=== PATIENT | male | born 1985 | race Caucasian/White ===

== ENCOUNTER 2021-02-09 01:01 | Observation (INO) | payer OTHER ==
[2021-02-09 01:08] VITALS: RESP 18; TEMP 98.3
[2021-02-09] MEDS ORDERED: MAG HYDROX/AL HYDROX/SIMETH 30 ML, HYOSCYAMINE ELIXIR 10 ML, LIDOCAINE VISCOUS 2% 10 ML PO STA ×3 (02:08)
[2021-02-09 02:31] VITALS: BP 123/82; PULSE 63
--- NOTE | 2021-02-09 02:44 | ED ---
Chest Pain HPI - General Chief Complaint: Chest Pain Stated Complaint: Chest Pain Time Seen by Provider: 02/09/21 01:12 Source: patient, EMS Mode of arrival: EMS - History of Present Illness MD Complaint: chest pain Onset/Timin -: hour(s) Onset: during rest Pain Location: left chest Pain Radiation: LUE Severity: severe Quality: aching Consistency: now resolved Improves With: nitroglycerin Worsens With: nothing Treatments Prior to Arrival: aspirin, nitroglycerin - Related Data Allergies Allergy/AdvReac Type Severity Reaction Status Date / Time No Known Allergies Allergy Verified 02/09/21 01:08 Review of Systems ROS Statement: Those systems with pertinent positive or pertinent negative responses have been documented in the HPI. ROS Other: All systems not noted in ROS Statement are negative. Constitutional: Denies: fever, chills Respiratory: Denies: cough, dyspnea Cardiovascular: Reports: as per HPI, chest pain. Denies: palpitations, edema, syncope Gastrointestinal: Denies: abdominal pain, nausea, vomiting, diarrhea Genitourinary: Denies: dysuria Musculoskeletal: Denies: back pain Skin: Denies: rash Neurological: Denies: headache, weakness, numbness EKG Findings - EKG Results: EKG: interpreted by AALIYAH FIGUEROA, sinus rhythm (Rate 67 bpm), normal axis, normal QRS, normal ST/T, no acute changes Past Medical History Past Medical History: No Reported History History of Any Multi-Drug Resistant Organisms: None Reported Past Surgical History: No Surgical Hx Reported Past Psychological History: No Psychological Hx Reported Smoking Status: Current every day smoker Past Alcohol Use History: Occasional Past Drug Use History: None Reported General Exam General appearance: alert, in no apparent distress Head exam: Present: atraumatic, normocephalic Eye exam: Present: normal appearance. Absent: scleral icterus, conjunctival in jection Neck exam: Present: normal inspection Respiratory exam: Present: normal lung sounds bilaterally. Absent: respiratory distress, wheezes, rales, rhonchi, stridor Cardiovascular Exam: Present: regular rate, normal rhythm, normal heart sounds. Absent: systolic murmur, diastolic murmur, rubs, gallop GI/Abdominal exam: Present: soft. Absent: distended, tenderness, guarding, rebound, rigid, mass Extremities exam: Present: normal inspection, normal capillary refill. Absent: pedal edema, calf tenderness Back exam: Present: normal inspection. Absent: CVA tenderness (R), CVA tenderness (L) Neurological exam: Present: alert Skin exam: Present: warm, dry, intact, normal color. Absent: rash Course Vital Signs 02/09/21 02/09/21 01:02 02:28 Temperature 98.3 F Pulse Rate 82 63 Respiratory 18 18 Rate Blood Pressure 110/67 123/82 O2 Sat by Pulse 97 99 Oximetry Chest Pain MDM - MDM This patient is 35-year-old man with chest pain who is transferred here from outside hospital to have admission for cardiology consultation. I did discuss all this with the patient and was proceeding to right patient's admission orders was subsequently informed that he was wanted to sign out AGAINST MEDICAL ADVICE. Discussed that there are deftly remains risk of coronary disease, but states she wanted to accept the risk Disposition Clinical Impression: Chest pain Disposition: Left Against Medical Advice Condition: Undetermined Is patient prescribed a controlled substance at d/c from ED?: No
[2021-02-09] MEDS ORDERED: NITROGLYCERIN SL TABS 0.4 MG TAB SUBLINGUAL PRN (03:02)
[2021-02-09] MEDS ORDERED: SODIUM CHLORIDE 0.9% 1,000 ML IV SCH (03:15)
[2021-02-10] MEDS ORDERED: ASPIRIN 325 MG TAB PO SCH (09:00)
== END 2021-02-09 03:35 | disposition left against medical advice (07) ==
LOC: EC 01:01 → UNDOADMOB 03:02 → 6NMEDSUR 03:02 → EC 03:27
PROVIDERS: ADMIT Hospitalist; ATTEND Hospitalist
DX: R07.9 Chest pain, unspecified (principal); R07.89 Other chest pain; F17.200 Nicotine dependence, unspecified, uncomplicated; Z53.29 Procedure and treatment not carried out because of patient's decision for other reasons
CPT/HCPCS: 36415; 84484; 93005; 99285